=== PATIENT | male | born 1955 | race Caucasian/White ===

== ENCOUNTER 2023-01-05 13:29 | Emergency (ER) | payer MEDICARE, OTHER, SELFPAY ==
[2022-12-15 08:08] VITALS: BP 102/54; BP 104/52; BP 118/64; BMI 46.5
--- NOTE | ~2023-01-05 | XR_ITS ---
EXAMINATION: XR CHEST CLINICAL INFORMATION: Pain. COMPARISON: None available. TECHNIQUE: 2 views of the chest were obtained. FINDINGS: The cardiomediastinal silhouette is within normal limits. There is a questionable 8 mm right upper lobe nodule. The lungs are otherwise clear. There are no pleural effusions. The bony structures and soft tissues are unremarkable. XR/XR chest 2V IMPRESSION: Questionable 8 mm right upper lobe nodule. Consider short-term follow-up or CT evaluation to confirm or exclude a nodule. No evidence for active cardiopulmonary disease.
--- NOTE | 2023-01-05 13:38 | ECG_ITS ---
Test Reason : PAIN Blood Pressure : / mmHG Vent. Rate : 064 BPM Atrial Rate : 064 BPM P-R Int : 130 ms QRS Dur : 082 ms QT Int : 412 ms P-R-T Axes : 067 047 072 degrees QTc Int : 425 ms Normal sinus rhythm Possible Left atrial enlargement Low voltage QRS Borderline ECG No previous ECGs available Referred By: Armanod Argueta Electronically Signed By:DEANN MONTOYA MD
--- NOTE | 2023-01-05 13:50 | ED_ITS ---
HPI - General Adult General Chief complaint: Upper Respiratory Symptoms Stated complaint: heart/lung issues Related Data Previous Rx's Medication Instructions Recorded benzonatate 200 mg capsule 200 mg PO TID PRN cough #30 caps 01/06/23 cefuroxime axetil 500 mg tablet 500 mg PO BID 10 days #20 tabs 01/06/23 Allergies Allergy/AdvReac Type Severity Reaction Status Date / Time cortisone [Cortisone] Allergy Mild THROAT Verified 01/05/23 14:00 CLOSED,RASH tetracycline [Tetracycline] Allergy Mild RASH Verified 01/05/23 14:00 gabapentin Allergy Agitated Verified 01/05/23 14:00 [facility] Social History Social History Patient Tobacco Use Status: Current someday Tobacco user Tobacco use type: Cigarette Cigarette Packs Per Day: 0.25 Years Smoked: 53 Patient Interested in Nicotine Replacement: Yes Physical Exam ED Vital Signs: BMI result Body Mass Index 32.8 Course Course Course Narrative: RME- 67 year old male presents for evaluation of chest pain and shortness of breath. Symptoms started 5 days ago. Plan for EKG, labs, chest x-ray. Patient is coming from cardiac rehab floor. He has a history of COPD and a history of coronary artery disease status post 1 stent Medical Decision Making Lab Data 01/05/23 13:52 01/05/23 13:52 Labs: Lab Results 01/05/23 Range/Units 13:52 WBC 7.0 (4.8-10.8) X10*3/uL RBC 4.51 L (4.60-5.80) X10*6/uL Hgb 13.4 L (14.0-18.0) g/dl Hct 39.3 L (42.0-52.0) % MCV 87.1 (80.0-98.0) fL MCH 29.7 (27.0-33.0) pg MCHC 34.1 (31.0-36.0) g/dl RDW 15.9 (11.0-16.0) % Plt Count 195 (160-400) X10*3/uL MPV 9.1 L (9.4-12.4) fL Immature Gran % (Auto) 0.4 (0.0-0.4) % Neut % (Auto) 83.0 H (45-73) % Lymph % (Auto) 9.2 L (20-40) % Kingfisher % (Auto) 7.3 (2-11) % Eos % (Auto) 0.0 (0-4) % Baso % (Auto) 0.1 (0-2) % Lymph # (Auto) 0.7 L (1.2-4.9) X10*3/uL Kingfisher # (Auto) 0.5 (0.1-1.2) X10*3/uL Eos # (Auto) 0.0 (0.0-0.4) X10*3/uL Baso # (Auto) 0.0 (0.0-0.2) X10*3/uL Abs Immat Gran (auto) 0.03 (0.00-0.03) X10*3/uL Absolute Neuts (auto) 5.8 (2.0-8.3) x10*3/uL Absolute Nucleated RBC 0.000 (0.0-0.012) X10*3/uL Nucleated RBC % (auto) 0.0 (0.0-0.2) /100WBC PT 15.9 H (11.1-13.3) SEC INR 1.3 H (0.9-1.1) APTT 33.9 (26.0-36.4) SEC Sodium 143 (135-145) mmol/L Potassium 4.0 (3.3-5.1) mmol/L Chloride 102 (96-108) mmol/L Carbon Dioxide 30 H (22-29) mmol/L Anion Gap 15 (12-20) BUN 16 (9-16) mg/dL Creatinine 0.94 (0.5-1.4) mg/dL Estim Creat Clear Calc 76.2 Estimated GFR > 60 Random Glucose 180 H (60-115) mg/dL Calcium 9.9 (8.4-10.2) mg/dL Total Bilirubin 1.2 H (0.0-1.0) mg/dL AST 16 (5-37) U/L ALT 19 (0-40) U/L Alkaline Phosphatase 80 (39-117) U/L Troponin I High Sens 11.4 (<3.5-35.0) ng/L Total Protein 7.0 (6.5-8.0) g/dL Albumin 4.3 (3.5-5.0) g/dL Lipase 14 (8-78) U/L Discharge Plan Discharge Clinical Impression: Chest pain Patient Disposition: Left W/O Completing Treatment Prescriptions: No Action benzonatate 200 mg capsule 200 mg PO TID PRN (Reason: cough) Qty: 30 0RF cefuroxime axetil 500 mg tablet 500 mg PO BID 10 Days Qty: 20 0RF Interventions: ED Discharge Assessment Last Done: 01/05/23 18:06 Discharge Date/Time: 01/05/23 18:23
[2023-01-05 13:57] LABS: MANUAL DIFF FLAG NO
[2023-01-05 13:59] LABS: Basophils Percent Auto 0.1 % (0-2); Hematocrit 39.3 % (42.0-52.0); Hemoglobin 13.4 g/dl (14.0-18.0); Imm Gran Abs Auto 0.03 X10*3/uL (0.00-0.03); Imm Gran Pct Auto 0.4 % (0.0-0.4); Lymphocytes Absolute Auto 0.7 X10*3/uL (1.2-4.9); Lymphocytes Percent Auto 9.2 % (20-40); Mean Corpuscular HGB Conc 34.1 g/dl (31.0-36.0); Mean Corpuscular Hemoglobin 29.7 pg (27.0-33.0); Mean Corpuscular Volume 87.1 fL (80.0-98.0); Mean Platelet Volume 9.1 fL (9.4-12.4); Monocytes Absolute Auto 0.5 X10*3/uL (0.1-1.2); Monocytes Percent Auto 7.3 % (2-11); Neutrophils Absolute Auto 5.8 x10*3/uL (2.0-8.3); Platelet Count 195 X10*3/uL (160-400); Red Blood Count 4.51 X10*6/uL (4.60-5.80); Red Cell Distribution Width 15.9 % (11.0-16.0)
[2023-01-05 14:01] VITALS: BP 119/65; PULSE 69; RESP 19; TEMP 36.6; O2SAT 97; BMI 32.8
[2023-01-05 14:05] LABS: INTERNATIONAL NORM RATIO 1.3 (0.9-1.1); Prothrombin Time 15.9 SEC (11.1-13.3)
[2023-01-05 14:08] LABS: Partial Thromboplastin Time 33.9 SEC (26.0-36.4)
[2023-01-05 14:13] LABS: Alanine Aminotransferase 19 U/L (0-40); Albumin Level 4.3 g/dL (3.5-5.0); Alkaline Phosphatase 80 U/L (39-117); Anion Gap 15 (12-20); Aspartate Amino Transferase 16 U/L (5-37); Bilirubin Total 1.2 mg/dL (0.0-1.0); Blood Urea Nitrogen 16 mg/dL (9-16); Calcium 9.9 mg/dL (8.4-10.2); Carbon Dioxide 30 mmol/L (22-29); Chloride 102 mmol/L (96-108); Creatinine Clr Calc Pharmacy 76.2; Estimated Glomerular Filt Rate > 60; Glucose Random 180 mg/dL (60-115); Lipase 14 U/L (8-78); Sodium 143 mmol/L (135-145)
[2023-01-05 14:20] LABS: Troponin-I High Sensitivity 11.4 ng/L (<3.5-35.0)
== END 2023-01-05 18:23 | disposition left against medical advice (07) ==
PROVIDERS: Physician Assistant; Emergency Provider Emergency Medicine; PCP Internal Medicine
DX: R07.9 Chest pain, unspecified (principal); R06.02 Shortness of breath; J44.9 Chronic obstructive pulmonary disease, unspecified; F17.210 Nicotine dependence, cigarettes, uncomplicated
CPT/HCPCS: 36415; 71046; 80053; 83690; 84484; 85025; 85610; 85730; 93005; 99283

== ENCOUNTER 2023-01-06 00:34 | Emergency (ER) | payer MEDICARE, OTHER, SELFPAY ==
[2022-12-15 08:08] VITALS: BP 102/54; BP 104/52; BP 118/64; BMI 46.5
--- NOTE | 2023-01-06 | ECG_ITS ---
Test Reason : CHEST PAIN Blood Pressure : / mmHG Vent. Rate : 064 BPM Atrial Rate : 064 BPM P-R Int : 140 ms QRS Dur : 082 ms QT Int : 424 ms P-R-T Axes : 067 052 070 degrees QTc Int : 437 ms Normal sinus rhythm Possible Left atrial enlargement Low voltage QRS When compared with ECG of 05-JAN-2023 13:44, No significant change was found Referred By: Generic ED Physician Electronically Signed By:DEANN MONTOYA MD
--- NOTE | ~2023-01-06 | CT_ITS ---
EXAMINATION: CT CHEST WITHOUT CONTRAST CLINICAL INFORMATION: Chest pain and COPD. COMPARISON: Chest x-ray performed 01/05/2023 TECHNIQUE: Multidetector volumetric CT imaging of the chest was done. Axial MIP volume rendering provided. Sagittal and coronal reformatted images were obtained. This CT examination was performed using dose optimization techniques as appropriate, variously including the following: *Automated exposure control *Adjustment of mA and/or kV according to patient size (this includes techniques or standardized protocols for targeted exams where dose is matched to indication/reason for exam; i.e. extremities or head) *Use of iterative reconstruction technique DLP: 439 mGy-cm FINDINGS: LUNGS: [id number] upper lung predominant emphysema. Diffuse moderate bronchial wall thickening without bronchiectasis. There is a spiculated nodule in the right upper lobe measuring 1.4 x 1.3 cm transaxially tethering the parietal pleura. No acute pneumonic process. MEDIASTINUM: Normal heart size is no pericardial effusion. No mediastinal, hilar or supraclavicular lymphadenopathy. Imaged thyroid gland unremarkable. CORONARY ARTERY CALCIFICATION: Triple vessel coronary calcifications present. PLEURA: There is no pleural effusion. No pleural mass or thickening. AXILLA: No lymphadenopathy. UPPER ABDOMEN: Unremarkable. OSSEOUS STRUCTURES: No acute or suspicious osseous abnormalities. CT/CT chest wo IV con IMPRESSION: 1. There is a spiculated 1.4 cm nodule in the right upper lobe customer care representative of a primary lung neoplasm until proven otherwise. Recommend CT-guided lung biopsy. 2. Yopp-xa-yeqamanl emphysema. 3. Triple vessel coronary calcifications. This critical result was discussed with Dr Gray at 01/06/2023 2:46 AM and it was ascertained that the content and urgency of the report was understood at the time of direct communication.
[2023-01-06 00:43] VITALS: BP 102/57; PULSE 70; RESP 18; TEMP 36.6; O2SAT 97; BMI 28.8
--- NOTE | 2023-01-06 00:54 | MHC.EDTECH ---
EKG done. Pt was seen here yesterday and had labs drawn but left before seeing provider. Per provider repeat labs not done at this time.
--- NOTE | 2023-01-06 01:14 | ED.CHESTPAIN ---
HPI - Chest Pain General Chief Complaint: Chest Pain Stated Complaint: Chest pain Time Seen by Provider: 01/06/23 01:14 History of Present Illness HPI narrative: Patient is 67 years old with history of CAD, 08/16 RENY proximal and mid RCA, ejection fraction 35-40%, HFrEF, COPD on home oxygen, history of PE in 09/16 on Eliquis, autoimmune hemolytic anemia hypertension hyperlipidemia right lung nodule comes here for chest discomfort for last 1 week dull in character does not follow any pattern occurs at rest does not use get worse with exertion points mid chest feels like it is in the lungs was sent here from cardiac rehab yesterday but patient did not wait as for long waiting time labs were done showed troponin of 11 patient was not seen by MD. Comes back now as is still having the discomfort which is getting worse and coughing with feeling of the phlegm in the lungs no fever no chills Related Data Previous Rx's Medication Instructions Recorded benzonatate 200 mg capsule 200 mg PO TID PRN cough #30 caps 01/06/23 cefuroxime axetil 500 mg tablet 500 mg PO BID 10 days #20 tabs 01/06/23 Allergies Allergy/AdvReac Type Severity Reaction Status Date / Time cortisone [Cortisone] Allergy Mild THROAT Verified 01/05/23 14:00 CLOSED,RASH tetracycline [Tetracycline] Allergy Mild RASH Verified 01/05/23 14:00 gabapentin Allergy Agitated Verified 01/05/23 14:00 Review of Systems Review of Systems: Yes all other systems are reviewed and are negative [facility] Social History Social History Patient Tobacco Use Status: Current someday Tobacco user Tobacco use type: Cigarette Cigarette Packs Per Day: 0.25 Years Smoked: 53 Smoked in Last 30 Days: No Use of substances other than those prescribed or required for medical reasons: No Advance Directives: No Advance Directives Information Provided: No Physical Exam Vital Signs: Vital Signs: Last Vital Signs Temp 97.9 F 01/06/23 03:57 Pulse 66 01/06/23 03:57 Resp 20 01/06/23 03:57 BP 114/54 L 01/06/23 03:57 Pulse Ox 96 01/06/23 03:57 O2 Del Method Nasal Cannula 01/06/23 03:57 O2 Flow Rate 2 01/06/23 03:57 BMI result Body Mass Index 28.8 Appearance: Alert. Oriented X3. No acute distress. Eyes: PERRLA, No Nystagmus ENT: Pharynx normal. Oral Mucosa moist Neck: Normal inspection. Neck supple. CVS: Normal heart rate and rhythm. Pulses normal. Respiratory: No respiratory distress. Equal air entry bilateral, no wheezing bilateral posteriorly rales prolonged expiration Abdomen: Soft and nontender. Bowel sounds are present, no mass palpable, no CVA tenderness Skin: Skin warm and dry. Normal skin color. Normal skin turgor. Extremities: 1+lower extremity edema. No calf tenderness Neuro: Oriented X 3. No motor deficit. No sensory deficit.No cerebellar signs , cranial nerves II-XII intact Medications Administered Discontinued Medications Generic Name Dose Route Start Last Admin Trade Name Freq PRN Reason Stop Dose Admin Benzonatate 200 mg 01/06/23 03:18 01/06/23 03:23 Benzonatate 100 Mg Capsule PO 01/06/23 03:19 200 mg ONCE ONE Administration Cefuroxime Axetil 500 mg 01/06/23 03:18 01/06/23 03:23 Cefuroxime Axetil 500 Mg Tablet PO 01/06/23 03:19 500 mg ONCE ONE Administration Albuterol Sulfate 2.5 mg/ 0 mg 01/06/23 01:41 01/06/23 02:01 Albuterol/Ipratropium 3 ml INHALE 01/06/23 01:42 1 dose ONCE ONE Administration Oxycodone HCl 10 mg 01/06/23 02:28 01/06/23 02:33 Oxycodone Hcl Immed Release 5 Mg Tablet PO 01/06/23 02:29 10 mg ONCE ONE Administration Medical Decision Making Medical Decision Making [facility] Narrative: Patient with congestion with mid chest pain no change in delta troponin D-dimer negative patient on Plavix and Eliquis for PE. No acute EKG changes. Patient responded to DuoNeb treatment likely patient has acute bronchitis with setting of worsening of nodule likely cancer. Discharge patient home on Ceftin advised to continue nebulizing treatment follow with security flex utility officer Differential Diagnosis Differential Diagnoses: The differential diagnosis associated with the presentation includes ACS/COPD/CHF/pleural effusion/lung mass/pleurisy/bronchitis/PE Admission/Observation Consideration of admission/observation: Escalation of care including admission/observation considered Lab Data [facility] Lab Attestation statement: I reviewed the patient's lab results. Labs: Lab Results 01/06/23 Range/Units 01:37 D-Dimer High Sensitivty < 150 NG/ML Troponin I High Sens 10.4 (<3.5-35.0) ng/L COVID-19 (DEEP) Negative (Negative) COVID-19 Clin Com See Note Independent Interpretation I performed an independent interpretation of an: EKG Interpretation: Normal sinus rhythm heart rate 64 beats per minute normal interval normal axis no acute ST T wave changes no acute ischemia Radiology Impression Discussion of test interpretation with radiology: I have reviewed the radiologist's reading. Radiologist Impression: CT/CT chest wo IV con IMPRESSION: 1. There is a spiculated 1.4 cm nodule in the right upper lobe home office representative of a primary lung neoplasm until proven otherwise. Recommend CT-guided lung biopsy. 2. Hwoa-kf-uskyalbj emphysema. 3. Triple vessel coronary calcifications. Discharge Plan Discharge Clinical Impression: Chest pain, Bronchitis, Lung cancer Patient Disposition: Home, Self-Care Instructions: Chest Pain (ED), Lung Cancer (DC), Acute Bronchitis (ED) Additional Instructions: Take antibiotic as prescribed for bronchitis and use your nebulizing treatment/inhaler as needed Cough drops as prescribed Antibiotic as prescribed Follow-up with security flex utility officer/wheel press operator for further evaluation Prescriptions: New benzonatate 200 mg capsule 200 mg PO TID PRN (Reason: cough) Qty: 30 0RF cefuroxime axetil 500 mg tablet 500 mg PO BID 10 Days Qty: 20 0RF Interventions: ED Discharge Assessment Last Done: 01/06/23 04:01 Discharge Date/Time: 01/06/23 04:01
[2023-01-06 01:15] VITALS: BP 122/64; PULSE 66; RESP 10; TEMP 36.5; O2SAT 97
--- NOTE | 2023-01-06 01:30 | PC.NURSE ---
this rn assumed care of pt from waiting room. pt at bedside. 20g iv placed in R hand. pt placed on bonding machine tender dr aj to bedside
[2023-01-06] MEDS: Albuterol Sulfate 2.5 MG, Albuterol/Iprat 2.5/0.5MG 3 ML 3 ML INHALE (02:01)
[2023-01-06 02:03] VITALS: PULSE 63; RESP 18; O2SAT 98
[2023-01-06 02:07] LABS: COVID-19 Test Negative (Negative); D Dimer High Sensitivity < 150 NG/ML; IDNOW Serial# 08D9AD1C
[2023-01-06] MEDS: oxyCODONE HCl Immed Release 5 MG TABLET 10 MG PO (02:33)
[2023-01-06 02:40] LABS: Troponin-I High Sensitivity 10.4 ng/L (<3.5-35.0)
[2023-01-06] MEDS: Benzonatate 100 MG CAPSULE 200 MG PO (03:23)
[2023-01-06 03:57] VITALS: BP 114/54; PULSE 66; RESP 20; TEMP 36.6; O2SAT 96
--- NOTE | 2023-01-06 03:59 | PC.NURSE ---
iv removed at discharge. vss. pt present at bedside. pt provided with discharge packet and copies of radiology reports. pt verbalized understanding of discharge plan. obedience trainer assisted pt to 's vehicle utilizing wheelchair
== END 2023-01-06 04:01 | disposition home or self-care (01) ==
PROVIDERS: Emergency Provider Internal Medicine; PCP Internal Medicine
DX: R07.9 Chest pain, unspecified (principal); J40 Bronchitis, not specified as acute or chronic; C34.11 Malignant neoplasm of upper lobe, right bronchus or lung; J44.9 Chronic obstructive pulmonary disease, unspecified; Z99.81 Dependence on supplemental oxygen; Z86.711 Personal history of pulmonary embolism; Z79.01 Long term (current) use of anticoagulants; F17.210 Nicotine dependence, cigarettes, uncomplicated; Z11.52 Encounter for screening for COVID-19
CPT/HCPCS: 36415; 71250; 84484; 85379; 87635; 93005; 94640; 99284; 99285